=== PATIENT | male | born 1955 | race African-American/Black ===

== ENCOUNTER 2016-10-15 15:50 | Inpatient (IN) | payer OTHER ==
--- NOTE | 2016-10-15 17:51 | HP ---
COWS - Scale Resting Pulse: 0= [place] 80 or Below Sweatin= Chills/Flushing Restless Observation: 3= Extraneous Movement Pupil Size: 0= Normal to Room Light Bone or Joint Aches: 2= Severe Diffuse Aches Runny Nose/ Eye Tearin= Runny Nose/Eyes GI Upset > 30mins: 3= Vomiting/Diarrhea Tremor Observation: 2= Slight Tremor Visible Yawning Observation: 0= None Anxiety or Irritability: 2=Irritable/Anxious Goose Flesh Skin: 0=Smooth Skin COWS Score: 15 Admission [facility] Chief Complaint: withdrawal sx Allergies/Adverse Reactions: Allergies Allergy/AdvReac Type Severity Reaction Status Date / Time No Known Allergies Allergy Verified 10/15/16 18:13 History of Present Illness: 61 years old male with long history of opiate nicotine dependence, has hypertension diabetes ii, denies mental illness, longest sobriety 16 years, is admitted to detox Exam Limitations: No Limitations - Ebola screening Have you traveled outside of the country in the last 21 days: No Have you had contact with anyone from an Ebola affected area: No Have you been sick,other than usual withdrawal symptoms: No Do you have a fever: No - Review of Systems Constitutional: Chills, Loss of Appetite, Changes in sleep, Unexplained wgt Loss EENT: reports: Cataracts (left), Dental Problems (few left in mouth), Other ( eye glasses) Respiratory: reports: No Symptoms reported Cardiac: reports: No Symptoms Reported GI: reports: Diarrhea, Nausea, Poor Appetite, Poor Fluid Intake, Vomiting, Abdominal cramping : reports: Frequency (at night), Incontinence Musculoskeletal: reports: Back Pain, Joint Pain, Muscle Pain, Muscle Weakness ( right leg), Neck Pain Integumentary: reports: No Symptoms Reported Neuro: reports: Tremors Endocrine: reports: No Symptoms Reported Hematology: reports: No Symptoms Reported Psychiatric: reports: Judgement Intact, Mood/Affect Appropiate, Orientated x3 Other Systems: Reviewed and Negative Patient History - Patient Medical History Hx Anemia: No Hx Asthma: Yes (ALBUTEROL) Hx Chronic Obstructive Pulmonary Disease (COPD): No Hx Cancer: No Hx Cardiac Disorders: Yes (HEART MURMUR A CHILD) Hx Congestive Heart Failure: No Hx Hypertension: Yes (NONCOMPLIANT WITH MEDS) Hx Hypercholesterolemia: No Hx Pacemaker: No HX Cerebrovascular Accident: No Hx Seizures: No Hx Dementia: No Hx Diabetes: Yes (METFORMIN 500 MG BID) Hx Gastrointestinal Disorders: No Hx Liver Disease: No Hx Genitourinary Disorders: No Hx Sexually Transmitted Disorders: No Hx Renal Disease (ESRD): No Hx Thyroid Disease: No Hx Human Immunodeficiency Virus (HIV): No (NEGTATIVE HX) Hx Hepatitis C: No Hx Depression: No (brother "i do not want to see psychiatrist") Hx Suicide Attempt: No (denies) Hx Bipolar Disorder: No Hx Schizophrenia: No - Patient Surgical History Past Surgical History: Yes Hx Neurologic Surgery: No Hx Cataract Extraction: No Hx Cardiac Surgery: No Hx Lung Surgery: No Hx Breast Surgery: No Hx Breast Biopsy: No Hx Abdominal Surgery: Yes (HERNIA REPAIR 1999) Hx Appendectomy: No Hx Cholecystectomy: Yes (in 1993) Hx Genitourinary Surgery: No Hx Orthopedic Surgery: No Other Surgical History: TONSILLECTOMY AT 9 OR 10 YR OLD; LIPOMA REMOVED FROM BACK IN 2011 Anesthesia Reaction: No - PPD History Previous Implant?: Yes Documented Results: Negative w/proof Implanted On Prior [facility] Admission?: Yes Date: 04/04/16 PPD to be Administered?: No - Smoking Cessation Smoking history: Current every day smoker Have you smoked in the past 12 months: Yes Aproximately how many cigarettes per day: 10 Hx Chewing Tobacco Use: No Initiated information on smoking cessation: Yes 'Breaking Loose' booklet given: 10/15/16 - Substance & Tx. History Hx Alcohol Use: No Hx Substance Use: Yes Substance Use Type: Cocaine, Heroin, Marijuana Hx Substance Use Treatment: Yes - Substances Abused Heroin Route: Inhalation Frequency: Daily Amount used: 11 bags Age of first use: 19 Date of Last Use: 10/14/16 Family Disease History - Family Disease History Family Disease History: Other: Father (HTN), Mother (HTN) Admission Physical Exam BHS - Vital Signs Vital Signs: Vital Signs - 24 hr 10/15/16 16:29 Temperature 97.6 F Pulse Rate 72 Respiratory 18 Rate Blood Pressure 162/97 - Physical General Appearance: Yes: Within Normal Limits, Moderate Distress, Thin, Tremorous, Irritable, Sweating, Anxious HEENTM: Yes: Hearing grossly Normal, Normal ENT Inspection, Normocephalic, Normal Voice Respiratory: Yes: Chest Non-Tender, Lungs Clear, Normal Breath Sounds, No Respiratory Distress, No Accessory Muscle Use Neck: Yes: Supple, Trachea in good position Breast: Yes: Breasts Symetrical Cardiology: Yes: Regular Rhythm, Regular Rate, S1, S2 Abdominal: Yes: Non Tender, Soft, Increased Bowel Sounds Genitourinary: Yes: Within Normal Limits Back: Yes: Normal Inspection Musculoskeletal: Yes: Gait Steady (cane), Joint Stiffness (ankles) Extremities: Yes: Non-Tender, Tremors Neurological: Yes: Fully Oriented, Alert, Motor Strength 5/5, Normal Mood/Affect , Normal Response Integumentary: Yes: Warm, Moist Lymphatic: Yes: Within Normal Limits - Diagnostic (1) Nicotine dependence Current Visit: Yes Status: Acute Qualifiers: Nicotine product type: cigarettes Substance use status: in withdrawal Qualified Code(s): F17.213 - Nicotine dependence, cigarettes, with withdrawal (2) Asthma Current Visit: Yes Status: Acute Qualifiers: Asthma severity: mild persistent Asthma complication type: uncomplicated Qualified Code(s): J45.30 - Mild persistent asthma, uncomplicated (3) DM (diabetes mellitus), type 2 Current Visit: Yes Status: Acute Qualifiers: Diabetes mellitus complication status: without complication Diabetes mellitus guard captain insulin use: without guard captain use Qualified Code(s): E11.9 - Type 2 diabetes mellitus without complications (4) Essential hypertension Current Visit: Yes Status: Acute (5) Opioid dependence with withdrawal Current Visit: Yes Status: Acute (6) Weight loss Current Visit: Yes Status: Acute (7) Neuropathy Current Visit: Yes Status: Acute Comment: neurontin cane fall precaution (8) Dry skin Current Visit: Yes Status: Acute Cleared for Admission [facility] - Detox or Rehab [facility] Level of Care: Medically Managed Detox Regimen/Protocol: Methadone [facility] Breath Alcohol Content Breath Alcohol Content: 0 Urine Drug Screen - Results Drug Screen Negative: No Urine Drug Screen Results: THC-Marijuana, GIGI-Cocaine, OPI-Opiates, MTD- Methadone
[2016-10-15] MEDS ORDERED: P-EPHED 60MG/TRIPROLIDI 2.5MG TABLET PO PRN (18:04)
[2016-10-15] MEDS ORDERED: METHADONE HCL 10 MG TABLET (FOR DETOX USE ONLY) PO ONE ×2 (18:04→23:00)
[2016-10-15] MEDS ORDERED: MAGNESIUM HYDROX 2400MG/30ML ORAL SUSPENSION 30 ML CUP PO PRN (18:04)
[2016-10-15] MEDS ORDERED: LOPERAMIDE HCL 2 MG CAPSULE PO PRN (18:04)
[2016-10-15] MEDS ORDERED: MAGNESIUM CITRATE 300 ML BOTTLE PO PRN (18:04)
[2016-10-15] MEDS ORDERED: MENTHOL/PHENOL 1 EACH UD MM PRN (18:04)
[2016-10-15] MEDS ORDERED: ACETAMINOPHEN 325 MG TABLET (FP) PO PRN (18:04)
[2016-10-15] MEDS ORDERED: NICOTINE POLACRILEX 2 MG GUM BC PRN (18:04)
[2016-10-15] MEDS ORDERED: ONDANSETRON *ODT* 4 MG TABLET SL PRN (18:09)
[2016-10-15] MEDS ORDERED: COLLOIDAL OATMEAL 1 BAR EACH TP PRN (18:10)
[2016-10-15] MEDS ORDERED: ALBUTEROL SO4 2.5/IPRATROPIUM 0.5 INH SOL 3 ML VIAL.NEB. NEB PRN (18:11)
[2016-10-15] MEDS ORDERED: AZITHROMYCIN 250 MG TABLET (FP) PO ONE (18:11)
[2016-10-15] MEDS ORDERED: ALBUTEROL SO4 6.7 GM HFA INHALER IH PRN (18:11)
[2016-10-15] MEDS: diazePAM 5 MG TABLET PO PRN (20:12)
[2016-10-15] MEDS: LISINOPRIL 20 MG TABLET (FP) PO SCH (20:13)
[2016-10-15] MEDS: THIAMINE HCL 100 MG TABLET (FP) PO SCH (22:51)
[2016-10-15] MEDS: amLODIPine BESYLATE 10 MG TABLET (FP) PO SCH (22:53)
[2016-10-15] MEDS: MINERAL OIL/PETROLAT/WATER TOPICAL CREAM 113 GM JAR TP SCH (22:54)
[2016-10-15 23:40] LABS: URINE APPEARANCE CLEAR; URINE BILIRUBIN NEGATIVE (NEGATIVE); URINE BLOOD NEGATIVE (NEGATIVE); URINE COLOR YELLOW; URINE GLUCOSE (UA) NEGATIVE (NEGATIVE); URINE KETONE NEGATIVE (NEGATIVE); URINE NITRITE NEGATIVE (NEGATIVE); URINE UROBILINOGEN 2.0 E.U/dl E.U./dl (0.2-1.0)
[2016-10-15 23:53] LABS: URINE LEUK ESTERASE TRACE (NEGATIVE); URINE PROTEIN 1+ (NEGATIVE)
[2016-10-16 00:14] LABS: URINE RBC 1 /hpf (0-3)
[2016-10-16 00:15] LABS: URINE MUCUS RARE; URINE WBC 4 /hpf (3-5)
[2016-10-16] MEDS: diazePAM 5 MG TABLET PO PRN (06:10)
[2016-10-16] MEDS: metFORMIN HCL 500 MG TABLET (FP) PO SCH ×2 (07:47→18:30)
[2016-10-16] MEDS ORDERED: METHADONE HCL 10 MG TABLET (FOR DETOX USE ONLY) PO ONE ×2 (10:00→12:28)
[2016-10-16] MEDS ORDERED: amLODIPine BESYLATE 10 MG TABLET (FP) PO SCH (10:00)
[2016-10-16 10:11] LABS: MCHC 33.6 g/dl (32.0-35.9); MEAN CELL VOLUME 92.1 fl (80-96); MEAN PLT VOLUME 8.1 fl (7.5-11.1); PLATELET COUNT 156 K/MM3 (134-434); RDW 13.8 % (11.9-15.9); WHITE BLOOD COUNT 8.2 K/mm3 (4.0-10.0)
[2016-10-16 10:41] LABS: ALBUMIN 3.1 g/dl (3.4-5.0); BILIRUBIN,TOTAL 0.4 mg/dL (0.2-1.0); CALCIUM 8.5 mg/dL (8.5-10.1); TOT PROT 6.8 g/dl (6.4-8.2)
[2016-10-16] MEDS: PRENATAL VITAMINS W/ FOLIC ACID TABLET (FP) PO SCH ×2 (11:24→11:49)
[2016-10-16] MEDS: GABAPENTIN 100 MG CAPSULE (FP) PO SCH ×2 (11:24→11:47)
[2016-10-16] MEDS: NICOTINE 21 MG/24 HOURS TOPICAL PATCH TD SCH ×2 (11:24→11:50)
[2016-10-16] MEDS: LISINOPRIL 20 MG TABLET (FP) PO SCH ×3 (11:25→11:53)
[2016-10-16] MEDS: AZITHROMYCIN 250 MG TABLET (FP) PO SCH ×2 (11:25→11:50)
[2016-10-16] MEDS ORDERED: INFLUENZA VACCINE 45 MCG/0.5 ML (MDV 16-17) IM ONE (12:00)
--- NOTE | 2016-10-16 12:14 | PN ---
BHS COWS - Scale Resting Pulse: 1= [place] 81-100 Sweatin= Chills/Flushing Restless Observation: 3= Extraneous Movement Pupil Size: 2= Moderately Dilated Bone or Joint Aches: 4=Acute Joint/Muscle Pain Runny Nose/ Eye Tearin= Nasal Congestion GI Upset > 30mins: 1= Stomach Cramp Tremor Observation of Outstretched Hands: 2= Slight Tremor Visible Yawning Observation: 2= >3x During Session Anxiety or Irritability: 2=Irritable/Anxious Goose Flesh Skin: 0=Smooth Skin COWS Score: 19 BHS Progress Note (SOAP) Subjective: ANXIETY,TREMORS,SWEATS,DIARRHEA,FATIGUE. Objective: 10/16/16 12:13 Vital Signs Temperature 96.4 F L 10/16/16 09:00 Pulse Rate 75 10/16/16 09:00 Respiratory Rate 20 10/16/16 09:00 Blood Pressure 153/102 10/16/16 09:00 O2 Sat by Pulse Oximetry (%) Laboratory Last Values WBC 8.2 K/mm3 (4.0-10.0) 10/16/16 07:15 RBC 3.98 M/mm3 (4.00-5.60) L 10/16/16 07:15 Hgb 12.3 GM/dL (11.7-16.9) 10/16/16 07:15 Hct 36.6 % (35.4-49) 10/16/16 07:15 MCV 92.1 fl (80-96) 10/16/16 07:15 MCHC 33.6 g/dl (32.0-35.9) 10/16/16 07:15 RDW 13.8 % (11.9-15.9) 10/16/16 07:15 Plt Count 156 K/MM3 (134-434) 10/16/16 07:15 MPV 8.1 fl (7.5-11.1) 10/16/16 07:15 Sodium 142 mmol/L (136-145) 10/16/16 07:15 Potassium 3.6 mmol/L (3.5-5.1) 10/16/16 07:15 Chloride 110 mmol/L (98-107) H 10/16/16 07:15 Carbon Dioxide 25 mmol/L (21-32) 10/16/16 07:15 Anion Gap 7 (8-16) L 10/16/16 07:15 BUN 28 mg/dL (7-18) H 10/16/16 07:15 Creatinine 2.0 mg/dL (0.7-1.3) H 10/16/16 07:15 Creat Clearance w eGFR 34.37 (>60) 10/16/16 07:15 POC Glucometer 88 UNITS (()) 10/16/16 06:12 Random Glucose 91 mg/dL (74-106) 10/16/16 07:15 Calcium 8.5 mg/dL (8.5-10.1) 10/16/16 07:15 Total Bilirubin 0.4 mg/dL (0.2-1.0) D 10/16/16 07:15 AST 34 U/L (15-37) 10/16/16 07:15 ALT 42 U/L (12-78) 10/16/16 07:15 Alkaline Phosphatase 80 U/L (45-117) 10/16/16 07:15 Total Protein 6.8 g/dl (6.4-8.2) 10/16/16 07:15 Albumin 3.1 g/dl (3.4-5.0) L 10/16/16 07:15 Urine Color Yellow 10/15/16 23:20 Urine Appearance Clear 10/15/16 23:20 Urine pH 6.0 (5.0-8.0) 10/15/16 23:20 Ur Specific [place] 1.018 (1.001-1.035) 10/15/16 23:20 Urine Protein 1+ (NEGATIVE) H 10/15/16 23:20 Urine Glucose (UA) Negative (NEGATIVE) 10/15/16 23:20 Urine Ketones Negative (NEGATIVE) 10/15/16 23:20 Urine Blood Negative (NEGATIVE) 10/15/16 23:20 Urine Nitrite Negative (NEGATIVE) 10/15/16 23:20 Urine Bilirubin Negative (NEGATIVE) 10/15/16 23:20 Urine Urobilinogen 2.0 e.u/dl E.U./dl (0.2-1.0) 10/15/16 23:20 Ur Leukocyte Esterase Trace (NEGATIVE) H 10/15/16 23:20 Urine RBC 1 /hpf (0-3) 10/15/16 23:20 Urine WBC 4 /hpf (3-5) 10/15/16 23:20 Ur Epithelial Cells Rare /hpf (FEW) 10/15/16 23:20 Urine Mucus Rare 10/15/16 23:20 Assessment: 10/16/16 12:14 WITHDRAWAL SX Plan: CONTINUE DETOX REPEAT UA
--- NOTE | 2016-10-16 14:26 | EKG ---
Test Reason : Blood Pressure : / mmHG Vent. Rate : 064 BPM Atrial Rate : 064 BPM P-R Int : 136 ms QRS Dur : 076 ms QT Int : 412 ms P-R-T Axes : 060 050 010 degrees QTc Int : 425 ms NORMAL SINUS RHYTHM NORMAL ECG NO PREVIOUS ECGS AVAILABLE Confirmed by HAMIDA ALY MD ([id number]) on 10/16/2016 2:26:09 PM Referred By: Confirmed By:HAMIDA ALY MD
[2016-10-16] MEDS: amLODIPine BESYLATE 10 MG TABLET (FP) PO SCH (22:28)
[2016-10-16] MEDS: MINERAL OIL/PETROLAT/WATER TOPICAL CREAM 113 GM JAR TP SCH (22:28)
[2016-10-16] MEDS: THIAMINE HCL 100 MG TABLET (FP) PO SCH (22:28)
[2016-10-17] MEDS: diazePAM 5 MG TABLET PO PRN (05:56)
[2016-10-17] MEDS: metFORMIN HCL 500 MG TABLET (FP) PO SCH ×2 (07:50→17:39)
[2016-10-17] MEDS ORDERED: METHADONE HCL 5 MG TABLET (FOR DETOX USE ONLY) PO ONE (10:00)
[2016-10-17] MEDS: GABAPENTIN 100 MG CAPSULE (FP) PO SCH (10:25)
[2016-10-17] MEDS: NICOTINE 21 MG/24 HOURS TOPICAL PATCH TD SCH (10:25)
[2016-10-17] MEDS: AZITHROMYCIN 250 MG TABLET (FP) PO SCH (10:25)
[2016-10-17] MEDS: PRENATAL VITAMINS W/ FOLIC ACID TABLET (FP) PO SCH (10:25)
[2016-10-17] MEDS: LISINOPRIL 20 MG TABLET (FP) PO SCH (10:25)
[2016-10-17] MEDS: LIDOCAINE 5% TOPICAL PATCH TP SCH (11:56)
[2016-10-17] MEDS: IBUPROFEN 400 MG TABLET (FP) PO PRN (22:48)
[2016-10-17] MEDS: THIAMINE HCL 100 MG TABLET (FP) PO SCH (22:48)
[2016-10-17] MEDS: amLODIPine BESYLATE 10 MG TABLET (FP) PO SCH (22:48)
[2016-10-18] MEDS: MINERAL OIL/PETROLAT/WATER TOPICAL CREAM 113 GM JAR TP SCH ×2 (00:38→22:37)
[2016-10-18] MEDS: MAG HYDROX/AL HYDROX/SIMETH 30 ML UNIT-DOSE CUP PO PRN (05:41)
[2016-10-18] MEDS: NICOTINE 21 MG/24 HOURS TOPICAL PATCH TD SCH (09:06)
[2016-10-18] MEDS: PRENATAL VITAMINS W/ FOLIC ACID TABLET (FP) PO SCH (09:06)
[2016-10-18] MEDS: metFORMIN HCL 500 MG TABLET (FP) PO SCH ×2 (09:06→17:12)
[2016-10-18] MEDS: LISINOPRIL 20 MG TABLET (FP) PO SCH (09:10)
[2016-10-18] MEDS: GABAPENTIN 100 MG CAPSULE (FP) PO SCH (09:10)
[2016-10-18] MEDS: LIDOCAINE 5% TOPICAL PATCH TP SCH (09:10)
[2016-10-18] MEDS ORDERED: METHADONE HCL 5 MG TABLET (FOR DETOX USE ONLY) PO ONE (10:00)
[2016-10-18] MEDS: AZITHROMYCIN 250 MG TABLET (FP) PO SCH (10:48)
[2016-10-18] MEDS: diazePAM 5 MG TABLET PO PRN (10:50)
--- NOTE | 2016-10-18 11:17 | PN ---
BHS Progress Note (SOAP) Subjective: SWEATING,INTERRUPTED SLEEP,RESTLESS Objective: 10/18/16 11:15 Vital Signs - 8 hr 10/18/16 10/18/16 10/18/16 03:24 06:32 11:01 Temperature 97.8 F 96.7 F L Pulse Rate 78 80 Respiratory 18 18 18 Rate Blood Pressure 139/96 136/93 Laboratory Tests 10/15/16 10/15/16 10/16/16 18:12 23:20 06:12 WBC RBC Hgb Hct MCV MCHC RDW Plt Count MPV Sodium Potassium Chloride Carbon Dioxide Anion Gap BUN Creatinine Creat Clearance w eGFR POC Glucometer 113 88 Random Glucose Calcium Total Bilirubin AST ALT Alkaline Phosphatase Total Protein Albumin Urine Color Yellow Urine Appearance Clear Urine pH 6.0 Ur Specific [place] 1.018 Urine Protein 1+ H Urine Glucose (UA) Negative Urine Ketones Negative Urine Blood Negative Urine Nitrite Negative Urine Bilirubin Negative Urine Urobilinogen 2.0 e.u/dl Ur Leukocyte Esterase Trace H Urine RBC 1 Urine WBC 4 Ur Epithelial Cells Rare Urine Mucus Rare RPR Titer Hepatitis C Antibody 10/16/16 10/16/16 10/16/16 07:15 07:15 07:15 WBC 8.2 RBC 3.98 L Hgb 12.3 Hct 36.6 MCV 92.1 MCHC 33.6 RDW 13.8 Plt Count 156 MPV 8.1 Sodium 142 Potassium 3.6 Chloride 110 H Carbon Dioxide 25 Anion Gap 7 L BUN 28 H Creatinine 2.0 H Creat Clearance w eGFR 34.37 POC Glucometer Random Glucose 91 Calcium 8.5 Total Bilirubin 0.4 D AST 34 ALT 42 Alkaline Phosphatase 80 Total Protein 6.8 Albumin 3.1 L Urine Color Urine Appearance Urine pH Ur Specific [place] Urine Protein Urine Glucose (UA) Urine Ketones Urine Blood Urine Nitrite Urine Bilirubin Urine Urobilinogen Ur Leukocyte Esterase Urine RBC Urine WBC Ur Epithelial Cells Urine Mucus RPR Titer Nonreactive Hepatitis C Antibody 10/16/16 10/16/16 10/17/16 07:20 16:46 05:57 WBC RBC Hgb Hct MCV MCHC RDW Plt Count MPV Sodium Potassium Chloride Carbon Dioxide Anion Gap BUN Creatinine Creat Clearance w eGFR POC Glucometer 91 73 Random Glucose Calcium Total Bilirubin AST ALT Alkaline Phosphatase Total Protein Albumin Urine Color Urine Appearance Urine pH Ur Specific [place] Urine Protein Urine Glucose (UA) Urine Ketones Urine Blood Urine Nitrite Urine Bilirubin Urine Urobilinogen Ur Leukocyte Esterase Urine RBC Urine WBC Ur Epithelial Cells Urine Mucus RPR Titer Hepatitis C Antibody >11.0 H 10/17/16 10/18/16 16:27 05:40 WBC RBC Hgb Hct MCV MCHC RDW Plt Count MPV Sodium Potassium Chloride Carbon Dioxide Anion Gap BUN Creatinine Creat Clearance w eGFR POC Glucometer 129 89 Random Glucose Calcium Total Bilirubin AST ALT Alkaline Phosphatase Total Protein Albumin Urine Color Urine Appearance Urine pH Ur Specific [place] Urine Protein Urine Glucose (UA) Urine Ketones Urine Blood Urine Nitrite Urine Bilirubin Urine Urobilinogen Ur Leukocyte Esterase Urine RBC Urine WBC Ur Epithelial Cells Urine Mucus RPR Titer Hepatitis C Antibody LABS NOTED Assessment: 10/18/16 11:15 WITHDRAWAL SX. Plan: CONTINUE DETOX
[2016-10-18] MEDS: THIAMINE HCL 100 MG TABLET (FP) PO SCH (22:37)
[2016-10-18] MEDS: amLODIPine BESYLATE 10 MG TABLET (FP) PO SCH (22:37)
[2016-10-19] MEDS: MAG HYDROX/AL HYDROX/SIMETH 30 ML UNIT-DOSE CUP PO PRN (05:47)
[2016-10-19] MEDS: PRENATAL VITAMINS W/ FOLIC ACID TABLET (FP) PO SCH (09:13)
[2016-10-19] MEDS: metFORMIN HCL 500 MG TABLET (FP) PO SCH ×2 (09:13→17:31)
[2016-10-19] MEDS: LISINOPRIL 20 MG TABLET (FP) PO SCH (09:13)
[2016-10-19] MEDS: AZITHROMYCIN 250 MG TABLET (FP) PO SCH (09:13)
[2016-10-19] MEDS: GABAPENTIN 100 MG CAPSULE (FP) PO SCH (09:13)
[2016-10-19] MEDS: NICOTINE 21 MG/24 HOURS TOPICAL PATCH TD SCH (09:14)
[2016-10-19] MEDS: LIDOCAINE 5% TOPICAL PATCH TP SCH (09:14)
[2016-10-19] MEDS ORDERED: METHADONE HCL 10 MG TABLET (FOR DETOX USE ONLY) PO ONE (10:00)
--- NOTE | 2016-10-19 14:56 | PN ---
S Progress Note (SOAP) Subjective: Anxious, sweating, back pain, nausea, interrupted sleep due to diarrhea last night (diarrhea subsided) Objective: 10/19/16 14:53 Last Vital Signs Temp Pulse Resp BP Pulse Ox 96.2 F L 95 H 20 137/97 10/19/16 12:32 10/19/16 12:32 10/19/16 12:32 10/19/16 12:32 Laboratory Tests 10/15/16 10/15/16 10/16/16 18:12 23:20 06:12 WBC RBC Hgb Hct MCV MCHC RDW Plt Count MPV Sodium Potassium Chloride Carbon Dioxide Anion Gap BUN Creatinine Creat Clearance w eGFR POC Glucometer 113 88 Random Glucose Calcium Total Bilirubin AST ALT Alkaline Phosphatase Total Protein Albumin Urine Color Yellow Urine Appearance Clear Urine pH 6.0 Ur Specific [place] 1.018 Urine Protein 1+ H Urine Glucose (UA) Negative Urine Ketones Negative Urine Blood Negative Urine Nitrite Negative Urine Bilirubin Negative Urine Urobilinogen 2.0 e.u/dl Ur Leukocyte Esterase Trace H Urine RBC 1 Urine WBC 4 Ur Epithelial Cells Rare Urine Mucus Rare RPR Titer Hepatitis C Antibody 10/16/16 10/16/16 10/16/16 07:15 07:15 07:15 WBC 8.2 RBC 3.98 L Hgb 12.3 Hct 36.6 MCV 92.1 MCHC 33.6 RDW 13.8 Plt Count 156 MPV 8.1 Sodium 142 Potassium 3.6 Chloride 110 H Carbon Dioxide 25 Anion Gap 7 L BUN 28 H Creatinine 2.0 H Creat Clearance w eGFR 34.37 POC Glucometer Random Glucose 91 Calcium 8.5 Total Bilirubin 0.4 D AST 34 ALT 42 Alkaline Phosphatase 80 Total Protein 6.8 Albumin 3.1 L Urine Color Urine Appearance Urine pH Ur Specific [place] Urine Protein Urine Glucose (UA) Urine Ketones Urine Blood Urine Nitrite Urine Bilirubin Urine Urobilinogen Ur Leukocyte Esterase Urine RBC Urine WBC Ur Epithelial Cells Urine Mucus RPR Titer Nonreactive Hepatitis C Antibody 10/16/16 10/16/16 10/17/16 07:20 16:46 05:57 WBC RBC Hgb Hct MCV MCHC RDW Plt Count MPV Sodium Potassium Chloride Carbon Dioxide Anion Gap BUN Creatinine Creat Clearance w eGFR POC Glucometer 91 73 Random Glucose Calcium Total Bilirubin AST ALT Alkaline Phosphatase Total Protein Albumin Urine Color Urine Appearance Urine pH Ur Specific [place] Urine Protein Urine Glucose (UA) Urine Ketones Urine Blood Urine Nitrite Urine Bilirubin Urine Urobilinogen Ur Leukocyte Esterase Urine RBC Urine WBC Ur Epithelial Cells Urine Mucus RPR Titer Hepatitis C Antibody >11.0 H 10/17/16 10/18/16 10/18/16 16:27 05:40 16:16 WBC RBC Hgb Hct MCV MCHC RDW Plt Count MPV Sodium Potassium Chloride Carbon Dioxide Anion Gap BUN Creatinine Creat Clearance w eGFR POC Glucometer 129 89 116 Random Glucose Calcium Total Bilirubin AST ALT Alkaline Phosphatase Total Protein Albumin Urine Color Urine Appearance Urine pH Ur Specific [place] Urine Protein Urine Glucose (UA) Urine Ketones Urine Blood Urine Nitrite Urine Bilirubin Urine Urobilinogen Ur Leukocyte Esterase Urine RBC Urine WBC Ur Epithelial Cells Urine Mucus RPR Titer Hepatitis C Antibody 10/19/16 05:45 WBC RBC Hgb Hct MCV MCHC RDW Plt Count MPV Sodium Potassium Chloride Carbon Dioxide Anion Gap BUN Creatinine Creat Clearance w eGFR POC Glucometer 81 Random Glucose Calcium Total Bilirubin AST ALT Alkaline Phosphatase Total Protein Albumin Urine Color Urine Appearance Urine pH Ur Specific [place] Urine Protein Urine Glucose (UA) Urine Ketones Urine Blood Urine Nitrite Urine Bilirubin Urine Urobilinogen Ur Leukocyte Esterase Urine RBC Urine WBC Ur Epithelial Cells Urine Mucus RPR Titer Hepatitis C Antibody Labs noted: UA 1+ protein Assessment: 10/19/16 14:54 Withdrawal symptoms Noted with proteinuria Plan: Continue detox Proteinuria: encouraged to drink more water, repeat UA
[2016-10-19 17:19] LABS: URINE APPEARANCE CLEAR; URINE BILIRUBIN NEGATIVE (NEGATIVE); URINE BLOOD NEGATIVE (NEGATIVE); URINE COLOR LTYELLOW; URINE GLUCOSE (UA) NEGATIVE (NEGATIVE); URINE KETONE NEGATIVE (NEGATIVE); URINE NITRITE NEGATIVE (NEGATIVE); URINE PROTEIN NEGATIVE (NEGATIVE); URINE UROBILINOGEN NEGATIVE E.U./dl (0.2-1.0)
[2016-10-19 17:25] LABS: URINE LEUK ESTERASE 1+ (NEGATIVE)
[2016-10-19 17:26] LABS: URINE WBC 3 /hpf (3-5)
[2016-10-19] MEDS: MINERAL OIL/PETROLAT/WATER TOPICAL CREAM 113 GM JAR TP SCH (22:18)
[2016-10-19] MEDS: amLODIPine BESYLATE 10 MG TABLET (FP) PO SCH (22:18)
[2016-10-19] MEDS: THIAMINE HCL 100 MG TABLET (FP) PO SCH (22:18)
[2016-10-20] MEDS ORDERED: METHADONE HCL 5 MG TABLET (FOR DETOX USE ONLY) PO ONE (06:00)
[2016-10-20] MEDS: metFORMIN HCL 500 MG TABLET (FP) PO SCH (07:08)
[2016-10-20] MEDS: PRENATAL VITAMINS W/ FOLIC ACID TABLET (FP) PO SCH (10:19)
[2016-10-20] MEDS: GABAPENTIN 100 MG CAPSULE (FP) PO SCH (10:19)
[2016-10-20] MEDS: LIDOCAINE 5% TOPICAL PATCH TP SCH (10:19)
[2016-10-20] MEDS: LISINOPRIL 20 MG TABLET (FP) PO SCH (10:19)
[2016-10-20] MEDS: NICOTINE 21 MG/24 HOURS TOPICAL PATCH TD SCH (10:20)
--- NOTE | 2016-10-20 11:51 | PN ---
[facility] Progress Note (SOAP) Subjective: LAST DAY OF MEDS,AWAITING TRANSFER TO [facility] Objective: 10/20/16 11:49 Vital Signs - 8 hr 10/20/16 10/20/16 06:14 09:46 Temperature 96.8 F L 97.1 F L Pulse Rate 97 H 100 H Respiratory 18 20 Rate Blood Pressure 122/97 132/95 Laboratory Tests 10/15/16 10/15/16 10/16/16 18:12 23:20 06:12 WBC RBC Hgb Hct MCV MCHC RDW Plt Count MPV Sodium Potassium Chloride Carbon Dioxide Anion Gap BUN Creatinine Creat Clearance w eGFR POC Glucometer 113 88 Random Glucose Calcium Total Bilirubin AST ALT Alkaline Phosphatase Total Protein Albumin Urine Color Yellow Urine Appearance Clear Urine pH 6.0 Ur Specific [place] 1.018 Urine Protein 1+ H Urine Glucose (UA) Negative Urine Ketones Negative Urine Blood Negative Urine Nitrite Negative Urine Bilirubin Negative Urine Urobilinogen 2.0 e.u/dl Ur Leukocyte Esterase Trace H Urine RBC 1 Urine WBC 4 Ur Epithelial Cells Rare Urine Mucus Rare RPR Titer Hepatitis C Antibody 10/16/16 10/16/16 10/16/16 07:15 07:15 07:15 WBC 8.2 RBC 3.98 L Hgb 12.3 Hct 36.6 MCV 92.1 MCHC 33.6 RDW 13.8 Plt Count 156 MPV 8.1 Sodium 142 Potassium 3.6 Chloride 110 H Carbon Dioxide 25 Anion Gap 7 L BUN 28 H Creatinine 2.0 H Creat Clearance w eGFR 34.37 POC Glucometer Random Glucose 91 Calcium 8.5 Total Bilirubin 0.4 D AST 34 ALT 42 Alkaline Phosphatase 80 Total Protein 6.8 Albumin 3.1 L Urine Color Urine Appearance Urine pH Ur Specific [place] Urine Protein Urine Glucose (UA) Urine Ketones Urine Blood Urine Nitrite Urine Bilirubin Urine Urobilinogen Ur Leukocyte Esterase Urine RBC Urine WBC Ur Epithelial Cells Urine Mucus RPR Titer Nonreactive Hepatitis C Antibody 10/16/16 10/16/16 10/17/16 07:20 16:46 05:57 WBC RBC Hgb Hct MCV MCHC RDW Plt Count MPV Sodium Potassium Chloride Carbon Dioxide Anion Gap BUN Creatinine Creat Clearance w eGFR POC Glucometer 91 73 Random Glucose Calcium Total Bilirubin AST ALT Alkaline Phosphatase Total Protein Albumin Urine Color Urine Appearance Urine pH Ur Specific [place] Urine Protein Urine Glucose (UA) Urine Ketones Urine Blood Urine Nitrite Urine Bilirubin Urine Urobilinogen Ur Leukocyte Esterase Urine RBC Urine WBC Ur Epithelial Cells Urine Mucus RPR Titer Hepatitis C Antibody >11.0 H LABS NOTED 10/19/16 10/19/16 10/19/16 05:45 15:23 16:24 WBC RBC Hgb Hct MCV MCHC RDW Plt Count MPV Sodium Potassium Chloride Carbon Dioxide Anion Gap BUN Creatinine Creat Clearance w eGFR POC Glucometer 81 111 Random Glucose Calcium Total Bilirubin AST ALT Alkaline Phosphatase Total Protein Albumin Urine Color Ltyellow Urine Appearance Clear Urine pH 6.0 Ur Specific [place] 1.011 Urine Protein Negative Urine Glucose (UA) Negative Urine Ketones Negative Urine Blood Negative Urine Nitrite Negative Urine Bilirubin Negative Urine Urobilinogen Negative Ur Leukocyte Esterase 1+ H Urine RBC None Urine WBC 3 Ur Epithelial Cells Rare Urine Mucus RPR Titer Hepatitis C Antibody Assessment: 10/20/16 11:50 WITHDRAWAL SX. Plan: CONTINUE DETOX
[2016-10-20] MEDS: IBUPROFEN 400 MG TABLET (FP) PO PRN (12:26)
[2016-10-20 14:18] VITALS: BP 125/87; PULSE 103; TEMP 98.2
[2016-10-21 14:22] LABS: HCV LOG 10 6.447 (.)
== END 2016-10-20 13:48 | disposition other institution (70) | DRG 773 ==
LOC: YASAS 15:50 → Y3N 18:56
PROVIDERS: ADMIT Internal Medicine; ATTEND Internal Medicine
PROC: HZ2ZZZZ Detoxification Services for Substance Abuse Treatment (ICD-10-PCS; principal; 2016-10-20)
DX: F11.23 Opioid dependence with withdrawal (principal); F17.213 Nicotine dependence, cigarettes, with withdrawal; I10 Essential (primary) hypertension; E11.9 Type 2 diabetes mellitus without complications; Z79.84 Long term (current) use of oral hypoglycemic drugs; J45.30 Mild persistent asthma, uncomplicated; G62.9 Polyneuropathy, unspecified; L85.3 Xerosis cutis
CPT/HCPCS: 36415; 80053; 81003; 81015; 85027; 86593; 86803; 87522; 93005; 93010